=== PATIENT | male | born 1970 | race Caucasian/White ===

== ENCOUNTER → 2020-06-25 | Day surgery (SDC) | payer BC ==
[2020-06-25] VITALS (10 sets, daily range): BP systolic 135–165; BP diastolic 78–106
[~2020-06-25] VITALS: Ht 180.3 cm; Wt 97.5 kg
[~2020-06-25] MED LIST: AMLO-170 PO; AMOX1TAB63 PO; DECADRON ONE; DIPRIVAN IV ONE; GLUCAGEN ONE; LACTATED RINGERS 1,000 ML ONE; MONT10TA95 PO; PANT40TA6 PO; QUELICIN ONE; ROCURONIUM BROMIDE IV ONE; SUBLIMAZE ONE; SUCR1ORA5 PO; VENTOLIN HFA IH ONE; VERSED ONE; WATER ONE; ZOFRAN ONE
--- NOTE | 2020-06-25 14:54 | NUR ---
ARRIVAL PATIENT ARRIVED TO [facility]ORY WITH FAMILY, C/O OF POSSIBLE STEAK STUCK IN HIS THROAT SINCE LAST NIGHT, PATIENT STATES HE WAS EATING STEAK AND CHOKED, HAS HAD TO HAVE IT REMOVED IN THE PAST, NO DIFFICULTY BREATHING BUT IS UNABLE TO SWALLOW ANY THING AND KEEP IT DOWN, CAME TODAY TO THE ED FOR EVAL. DOCTOR JUAN NOTIFIED OF PATIENT'S ARRIVAL.
[2020-06-25] MEDS: GLUCAGEN IV STA (15:08)
--- NOTE | 2020-06-25 15:14 | ER.PDOC ---
General Chief Complaint: General Complaint Stated Complaint: FOREIGN OBJECT TRAVEL OUT OF US: No Time seen by MD: 15:06 Source: patient, family History of Present Illness Initial Comments Patient reports that he ate steak last night and a piece lodged in his esophagus. He was been unable to swallow anything since 8pm last night. He has no pain but shortly after swallowing he regurgitates the liquid. He also spits up his saliva. He tried coke with no improvement. The same thing happened in 2011 and he had to have it removed via endoscopy. He has no other complaints Allergies: Coded Allergies: No Known Allergies (Unverified , 06/25/20) Home Meds Reported Medications Amlodipine Besylate (AMLODIPINE BESYLATE) 10 Mg Tablet, 1 TAB PO DAILY, #90 TAB 3 Refills 06/25/20 Montelukast Sodium (MONTELUKAST SODIUM) 10 Mg Tablet, 1 TAB PO DAILY, #90 TAB 3 Refills 06/25/20 Past Medical History Medical History: hypertension Surgical History: other Social History Alcohol Use: occassionally Drug Use: none Reviewed Nursing Reviewed: Vital Signs, Abn. Noted, Nursing Assessment Review of Systems Constitutional: no symptoms reported EENTM: no symptoms reported Cardiovascular: no symptoms reported Gastrointestinal: see HPI All Other Systems: Reviewed and Negative Physical Exam General Appearance: No Apparent Distress EENT: eyes nml inspection Respiratory: chest non-tender, lungs clear, normal breath sounds CVS: reg rate & rhythm, no murmur, no gallop, pulses nml Gastrointestinal: Normal Bowel Sounds, No Organomegaly, Non Tender Neurologic/Psychiatric: No Motor/Sensory Deficits, Alert Results/Orders Results/Orders Orders - TUNG MARTINEZ MD Glucagon,Human Recombinant (Glucagen) (06/25/20 14:58) Glucagon,Human Recombinant (Glucagen) (06/25/20 15:03) Vital Signs Date Time Temp Pulse Resp B/P (MAP) Pulse Ox O2 Delivery O2 Flow Rate FiO2 06/25/20 14:51 98.1 112 20 06/25/20 14:51 98.1 112 20 97 06/25/20 14:51 98.1 112 20 165/106 (125) 97 Room Air Administered Medications Medications (Trade) Dose Ordered Sig/Jesusita Route PRN Reason Start Time Stop Time Status Last Admin Dose Admin Glucagon (Glucagen) 1 mg STAT STAT IV 06/25/20 15:03 06/25/20 15:07 DC 06/25/20 15:08 1 MG Progress Progress No improvement with the glucagon. Dr Lewis will take to GI lab ER DEPART Departure Time of Disposition: 16:07 Disposition: 30 STILL A PATIENT Impression: Primary Impression: Food impaction of esophagus Condition: Stable Referrals: PCP,UNKNOWN (PCP) PRIMARY CARE PROVIDER Duration or Time Spent with Pa: 15 TUNG MARTINEZ MD Jun 25, 2020 15:13
--- NOTE | 2020-06-25 15:25 | NUR ---
STATUS ATTEMPTED TO GIVE PATIENT SIPS OF WATER, PATIENT CONTINUES TO FILL LIKE FOOD IS STUCK. DOCTOR JUAN NOTIFIED, HE WILL CONTACT DOCTOR GROSS.
--- NOTE | 2020-06-25 15:31 | NUR ---
RENATO MARTINEZ ON THE PHONE WITH DOCTOR GROSS AT THIS TIME.
--- NOTE | 2020-06-25 15:37 | NUR ---
RICARDA DOCTOR JUAN ON THE PHONE DISCUSSING PATIENT WITH DOCTOR CHOWDARY
[2020-06-25 16:35] LABS: BASOPHIL # 0.1 10^3/uL (0.0-0.1); BASOPHIL % 0.7 % (0.0-0.2); EOSINOPHIL # 0.1 10^3/uL (0.0-0.2); EOSINOPHIL % 0.7 % (0.0-5.0); LYMPHOCYTES # 1.67 10^3/uL1 (1.0-4.8); MEAN CORP HGB 30.3 pg (26-34); MONOCYTES # 0.7 10^3/uL (0.3-0.8); MONOCYTES % 6.9 % (5.0-12.0); NEUTROPHIL # 7.9 10^3/uL (1.8-7.7); NEUTROPHILS % 75.5 % (41.0-85.0); PLATELET COUNT 182 10^3/uL (150-400); RED CELL DISTRIBUTION WIDTH 12.8 % (11.5-14.5)
[2020-06-25 16:53] LABS: CALCIUM 9.2 mg/dL (8.4-10.5)
--- NOTE | 2020-06-25 17:20 | PRM.CONS ---
Consultation Reason for Consult: Reason for Consultation: Esophageal food impaction History of Present Illness History of Present Illness This is a 49yo man with a history of esophageal food impaction who underwent emergent endoscopy and retrieval 8y ago at another hospital. At the time, no stricture, Shatzki ring, or obstructing tumor or lesion was identified. The patient recovered from this well and was in his USOH until yest at 8pm when he ate steak. He developed inability to tolerate saliva with nausea and salivary emesis thereafter, and feels the sensation that something is stuck within his esophgus as it was 8y ago. He denies chest pain, shortness of breath, fevers, or chills since this time. He endorses at times having dysphagia to solids, and requiring large amounts of liquids to encourage solids to pass. He denies regurgitation, heartburn, chronic cough, or recurrent PNAs. He denies dysphagia to lioquids. He denies recent weright loss. He presented to the ER for evaluation. Past Surgical History: No pertinent hx Past Social History Smoke: No Alcohol: none Lives: with Family Domestic Violence: Neg Travel Hx EBOLA RISK:Travel to/contact w: No Physical Exam General Appearance: alert, no distress EENT: nml eye inspection, PERRL, no nystagmus Neck: supple Respiratory: no resp distress, breath sounds nml CVS: reg rate & rhythm, heart sounds.nml Abdomen: non-tender, no distention Skin: color nml, no rash Extremities: non-tender, nml ROM, no pedal edema Neuro/Psych: nml orientation, nml speech/cognition Cranial Nerves: nml as tested, no evidence of acute CVA Cerebellar: nml as tested Sensorimotor: nml motor, nml sensation Review of Systems Constitutional: No: Fever, Chills, Sweats, Weakness, Malaise, Other Respiratory: No: Cough, Dry, Shortness of breath, SOB with excertion, Wheezing, Hemoptysis, Pleuritic Pain, Sputum, Wheezing, Other Cardiovascular: No: Chest Pain, Palpitations, Orthopnea, Paroxysmal Noc. Dyspnea, Edema, Lt Headedness, Other Gastrointestinal: Nausea, Vomiting Genitourinary: No Dysuria, No Frequency, No Incontinence, No Hematuria, No Retention, No Other Skin: No: Rash, Lesions, Jaundice, Bruising, Other Neurological: No: Weakness, Numbness, Incoordination, Change in speech, Confusion, Seizures, Other Allergies: Coded Allergies: No Known Allergies (Unverified , 06/25/20) Scheduled Amlodipine Besylate (Amlodipine Besylate), 1 TAB PO DAILY, (Reported) Montelukast Sodium (Montelukast Sodium), 1 TAB PO DAILY, (Reported) VTE VTE Risk Score VTE Risk: Score 0-1 = Low Risk (Aggressive mobilization; early ambulation; no VTE prophylaxis required) Score 2: Moderate Risk (Intermittent/Pneumatic Compression Device OR Lovenox/Heparin/Coumadin) Score 3-4: High Risk (Intermittent/Pneumatic Compression Device AND Lovenox/Heparin/Coumadin) Score > or =5: Highest Risk (Intermittent/Pneumatic Compression Device AND Lovenox/Heparin/Coumadin) Antico:Hep/LMWH/Coum/Xarelto: No Mechanical device ordered: Yes Assessment/Plan Assessment/Plan Assessment/Plan 49yo man with esophageal food impaction for nearly 24h, in stabe condition with no e/o perforation or complications thereof at present. Patient History: Patient reports no known family medical history. Plan NPO PPI For emergent endoscopy and retrieval of foreign body. We reviewed the R/B/A to endoscopy, including but not limited to bleeding, perforation, inability to retrieve the foreign body, and/or need for further procedures and/pr surgery and transfer to another institution should I be unable to accomplish the above. Understanding these, the pt wishes to proceed The pt should seek consultation with etl analyst, assuming no obstructing lesion is identified, for workup of possible motility disorder i.e. achalasia, in the outpatient setting. He is aware of this. PREMA GROSS MD Jun 25, 2020 17:20
--- NOTE | 2020-06-26 12:32 | PRM.OPH ---
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 He presents with nearly 24- hours hours of inability to tolerate salivary secretions as well as nausea, in the setting of having had steak for dinner the evening prior to presentation. An impacted foreign body was suspected. The patient was given glucagon injection in the emergency department however the food bolus did not pass spontaneously. Urgent endoscopy was indicated; the risks, benefits, and alternatives were discussed with the patient and he provided informed consent. Physician's Summary: Patient identification and the proposed procedure were verified prior to the procedure by the physician, the nurse, and the AUTOMATIC BANDSAW TENDER. The procedure was verified in the pre-procedure area. ASA Grade Assessment: II - A patient with mild systemic disease After obtaining informed consent the endoscope was passed under direct vision. Throughout the procedure, the patient's pulse, blood pressure, and oxygen saturation were monitored continuously. The Endoscope was introduced into the mouth and advanced to the second part of the duodenum. I was present and participated during the entire procedure, including non-martin portions, and during the administration and monitoring of moderate sedation. The upper GI endoscopy was accomplished without difficulty. The patient tolerated the procedure well. Findings: Esophagus: A large foreign body was identified in the distal esophagus at the gastroesophageal junction, with resulting obstruction proximally. I was unable to pass the scope beyond this point. Biopsy forceps and a snare device were used to morcellate the foreign body into small bits, allowing it to pass into the stomach with ease. The remaining debris in the distal esophagus was flushed into the stomach with water. Some were removed with the forcep, per-orally. The m ucosa of the esophagus in this area was carefully inspected; there was mild ulceration and esophagitis, likely from the food impaction in the area. There was no evidence of necrosis or perforation. No underlying ring, mass, or stricture were present. The Z-line was located at 45cm from the teeth and appeared regular. Stomach: The proximal stomach and body were examined. The antrum showed evidence of mild gastritis. No ulcers were present. A retroflexed view of the GE junction and the fundus showed no evidence of an obstructing mass or ulcer. Duodenum: There were innumerable white plaques on the mucosa of the first portion of the duodenum. These did not appear to be typical ulcers; one was biopsied and sent to pathology. There was a reasonable amount of bleeding from the mucosa following the biopsy, in an ooze like fashion, however this eventually stopped spontaneously. Because of the extent of bleeding I did not feel comfortable biopsying the antrum for H pylori or the esophagus itself. Impression: Successful disimpaction of the distal esophagus; nearby esophagitis with ulceration Normal Z line; normal stomach Duodenal plaques, one of which was biopsied, with adequate hemostasis resulting Recommendation: -Return patient to recovery for PO challenge - Keep on PO PPI and carafate suspension TID with meals on discharge for 2 weeks - Followup pathology result of duodenal lesion biopsy - Will coordinate H pylori stool antigen testing with patient's PCP in [place] - Avoid smoking, alcohol use, and all NSAID medications - I recommend outpatient workup with demographic analyst for motility disorder i.e. achalasia; discussed with patient's NOK () Specimen(s) Removed: List Specimen: Duodenal biopsy Estimated Blood Loss: EBL/ESTIMATED BLOOD LOSS: (MIL: 10 Complications: Complications: None apparent Assessment & Plan: Assessment & Plan: To recovery; extubated and in stable condition PREMA GROSS MD Jun 26, 2020 12:32
== END | disposition home or self-care (01) ==
LOC: ER 14:23 → SDC 16:32
PROVIDERS: ATTEND Surgery
DX: T18.128A Food in esophagus causing other injury, initial encounter (principal); I10 Essential (primary) hypertension; K22.2 Esophageal obstruction; F41.9 Anxiety disorder, unspecified; J45.909 Unspecified asthma, uncomplicated; E66.9 Obesity, unspecified; F17.200 Nicotine dependence, unspecified, uncomplicated; Z88.8 Allergy status to other drugs, medicaments and biological substances; Z79.899 Other long term (current) drug therapy; Z72.89 Other problems related to lifestyle; X58.XXXA Exposure to other specified factors, initial encounter
CPT/HCPCS: 36415; 80053; 85025; 99285; J0330; J1100; J1610; J2250; J2405; J3010; J3490; J7120; J7611; 88305